=== PATIENT | female | born 1950 | race Caucasian/White ===

== ENCOUNTER 2017-04-14 09:30 | Observation (INO) | payer MEDICARE ==
[~2017-04-14] VITALS: Ht 165.1 cm; Wt 74.3 kg
[2017-04-14 09:25] LABS: BASOPHILS % (AUTO) 0.4 % (0.0-5.0); EOSINOPHILS % (AUTO) 1.9 % (0.0-8.0); HEMATOCRIT 43.7 % (36-48); MEAN CORPUSCULAR HEMOGLOBIN 31.8 pg (27.0-33.0); MEAN CORPUSCULAR HGB CONC 33.8 g/dL (32.0-36.0); MONOCYTES % (AUTO) 9.6 % (3.0-13.0); NEUTROPHILS % (AUTO) 53.1 % (40.0-77.0); PLATELET COUNT (AUTO) 244 K/uL (130-400); RED BLOOD CELL COUNT(AUTO) 4.65 MIL/uL (4.00-5.50); RED CELL DISTRIBUTION WIDTH 13.2 % (11.0-15.5); WHITE BLOOD COUNT (AUTO) 5.1 K/uL (4.8-10.8)
[2017-04-14 09:28] VITALS: BP 127/65
[2017-04-14 09:36] LABS: CREATININE 0.8 mg/dL (0.5-1.5); POTASSIUM 3.9 mmol/L (3.5-5.1)
[2017-04-14] MEDS ORDERED: TRAM50TA4 PO (09:49)
[2017-04-14] MEDS ORDERED: TRIA1TAB3 PO (09:49)
[2017-04-14] MEDS ORDERED: CELE200 PO (09:49)
[2017-04-14] MEDS ORDERED: CHOL100040 PO (09:49)
[2017-04-14] MEDS ORDERED: OMEP20CA10 PO (09:49)
[2017-04-14] MEDS ORDERED: OXYC-38 PO (09:49)
[2017-04-14] MEDS ORDERED: MULT-1077 PO (09:49)
[2017-04-16] VITALS (20 sets, daily range): BP systolic 89–136; BP diastolic 34–76
[2017-04-16] MEDS: CLINDAMYCIN 900 MG/D5% WATER 50 ML IV SCH ×5 (05:00→20:51)
[2017-04-16] MEDS ORDERED: LACTATED RINGERS 1000ML 1,000 ML IV ONE (06:30)
[2017-04-16] MEDS ORDERED: EPINEPHRINE 1 MG/ML AMPULE ONE (06:39)
[2017-04-16] MEDS ORDERED: BUPIVACAINE/PF 0.25% 30ML VIAL IJ ONE (06:39)
[2017-04-16] MEDS ORDERED: DURAMORPH PF1 MG/ML 10ML AMP IV ONE (06:39)
[2017-04-16] MEDS ORDERED: BACITRACIN 50,000 UNIT VIAL ONE (06:40)
[2017-04-16] MEDS ORDERED: THROMBIN-JMI 20000 UNIT KIT TP ONE (06:40)
[2017-04-16] MEDS ORDERED: PROPOFOL 10 MG/ML 20ML VIAL IV ONE (06:52)
[2017-04-16] MEDS ORDERED: DEXAMETHASONE SOD PHOSPHATE 10MG/ML 1ML VIAL ONE ×2 (06:52→09:43)
[2017-04-16] MEDS ORDERED: SUCCINYLCHOLINE 200MG/10ML SYR ONE ×2 (06:52→10:43)
[2017-04-16] MEDS ORDERED: ONDANSETRON HCL 4 MG/2 ML VIAL ONE (06:52)
[2017-04-16] MEDS ORDERED: GLYCOPYRROLATE 0.2 MG/ML 5 ML VIAL ONE (06:52)
[2017-04-16] MEDS ORDERED: LIDOCAINE PF 2% 5ML ABBOJECT ONE (06:52)
[2017-04-16] MEDS ORDERED: MIDAZOLAM HCL 1 MG/ML 2ML VIAL ONE ×2 (06:52→06:53)
[2017-04-16] MEDS ORDERED: FENTANYL CITRATE PF 50 MCG/1 ML 2ML VIAL ONE ×3 (06:53→10:49)
[2017-04-16] MEDS ORDERED: METOCLOPRAMIDE 10 MG/2 ML VIAL ONE (09:43)
[2017-04-16] MEDS ORDERED: ROCURONIUM BROMIDE 10MG/1ML 5ML VL ONE (10:43)
[2017-04-16] MEDS ORDERED: PHENYLEPHRINE HCL 10 MG/ML 1ML VIAL IV ONE (10:43)
[2017-04-16] MEDS ORDERED: ROPIVACAINE 0.5% 5MG/ML 30ML IJ ONE (10:44)
[2017-04-16] MEDS ORDERED: ATROPINE SULFATE 0.1 MG/ML 10 ML SYG IVP ONE (10:49)
[2017-04-16] MEDS ORDERED: PROMETHAZINE HCL 25 MG/ML 1ML AMPULE IM PRN (11:00)
[2017-04-16] MEDS ORDERED: HYDROCODONE/ACETAMINOPHEN 5/325 MG TAB PO PRN (11:00)
[2017-04-16] MEDS ORDERED: SODIUM CHLORIDE 0.9% 10 ML VIAL IVP PRN (11:00)
[2017-04-16] MEDS ORDERED: DEXAMETHASONE SOD PHOSPHATE 4 MG/ML 1ML VIAL IVP SCH (11:00)
[2017-04-16] MEDS ORDERED: MORPHINE SULFATE 2 MG/ML 1ML SYG IVP PRN (11:00)
[2017-04-16] MEDS: LACTATED RINGERS 1000ML 1,000 ML IV SCH (13:11)
[2017-04-16] MEDS: DEXAMETHASONE SOD PHOSPHATE 4 MG/ML 1ML VIAL IVP SCH ×2 (14:49→20:51)
[2017-04-16] MEDS: TRAMADOL HCL 50 MG TABLET PO PRN (16:37)
[2017-04-17] MEDS: LACTATED RINGERS 1000ML 1,000 ML IV SCH (00:16)
[2017-04-17 00:28] VITALS: BP 110/50
[2017-04-17] MEDS: CLINDAMYCIN 900 MG/D5% WATER 50 ML IV SCH (02:50)
[2017-04-17] MEDS: DEXAMETHASONE SOD PHOSPHATE 4 MG/ML 1ML VIAL IVP SCH (02:50)
[2017-04-17 04:00] VITALS: BP 108/50
[2017-04-17] MEDS: TRAMADOL HCL 50 MG TABLET PO PRN (07:38)
[2017-04-17 08:04] VITALS: BP 102/47
[2017-04-17] MEDS ORDERED: TRIAMTERENE/HYDROCHLOROTHIAZIDE 37.5/25 MG CAP PO SCH (09:00)
[2017-04-17] MEDS ORDERED: PANTOPRAZOLE SODIUM 40 MG TABLET.DR PO SCH (09:00)
[2017-04-17] MEDS ORDERED: CELECOXIB 200 MG CAP PO SCH (09:00)
[2017-04-17] MEDS ORDERED: MULTIVITAMIN WITH MINERALS TABLET PO SCH (09:00)
[2017-04-17] MEDS ORDERED: VITAMIN D3 PO SCH (09:00)
== END 2017-04-17 10:43 | disposition home or self-care (01) ==
LOC: EDSTATUS 09:30 → INTOOBSV 04-16 05:56 → DAHIP 04-16 05:56 → 4AH 04-16 11:58
PROVIDERS: ADMIT Neurological Surgery; ATTEND Neurological Surgery
DX: M51.26 Other intervertebral disc displacement, lumbar region (principal); Z90.710 Acquired absence of both cervix and uterus; Z79.899 Other long term (current) drug therapy
CPT/HCPCS: 36415; 63047; 72020; 80048; 85025; 96365; 96375; 96376 ×2; A4344; A4510; A4600; A5113; A6219; G0378 ×30; J0171; J0330 ×2; J0461; J1100 ×5; J2001; J2250 ×2; J2274; J2370; J2405; J2704; J2765; J2795; J3010 ×3; J3490 ×7; J7120 ×2